=== PATIENT | male | born 1970 | race Two or more races ===

== ENCOUNTER 2018-11-05 16:20 | Inpatient (IN) | payer OTHER, MEDICAID ==
[~2018-11-05] VITALS: Ht 162.6 cm; Wt 69.9 kg
[2018-11-05] MEDS ORDERED: SODIUM CHLORIDE 0.9% 500 ML IV ONE (16:58)
[2018-11-05] MEDS ORDERED: ACETAMINOPHEN 325MG TABLET PO PRN (17:45)
[2018-11-05] MEDS ORDERED: ONDANSETRON HCL 4MG/2ML INJ IV PRN (17:45)
[2018-11-05] MEDS ORDERED: CLONIDINE 0.1MG TABLET PO PRN (17:45)
[2018-11-05] MEDS ORDERED: DOCUSATE SODIUM 100MG CAPSULE PO PRN (17:45)
[2018-11-05] MEDS ORDERED: VANCOMYCIN 1 G PREMIX 200 ML IV ONE (18:00)
[2018-11-05] MEDS ORDERED: HYDROMORPHONE HCL/PF 2MG/ML CPJ IV PRN (18:00)
[2018-11-05] MEDS ORDERED: PIPERACILLIN/TAZ 3.375G PREMIX 50 ML IV ONE (18:00)
[2018-11-05 18:14] LABS: HEMOGLOBIN. 7.4 g/dL (14.0-18.0); MEAN CORPUSCULAR HEMOGLOBIN 38.4 pg (28.0-32.0); MEAN PLATELET VOLUME 8.5 fl (7.4-10.4); PLATELET 65 x1000/uL (130-400); RED BLOOD CELL COUNT 1.93 mill/uL (4.7-6.1); RED CELL DISTRIBUTION WIDTH 25.8 % (11.6-14.6)
[2018-11-05 18:15] LABS: CHLORIDE 95 mEq/L (98-107)
[2018-11-05 18:17] LABS: HEMATOCRIT. 20.9 % (42.0-52.0)
[2018-11-05 18:19] LABS: ETHANOL BLOOD < 10 mg/dL; INR 1.6; PROTHROMBIN TIME 15.8 sec (9.6-11.0)
[2018-11-05 18:57] LABS: NUCLEATED RED BLOOD CELLS 1 /100 WBC; PLATELET ESTIMATE DECREASED
[2018-11-05 19:45] LABS: CLARITY URINE TURBID (CLEAR); COLOR URINE DARK YELLOW (YELLOW); KETONES URINE NEGATIVE (NEGATIVE); LEUKOCYTE ESTERASE URINE 2+ (NEGATIVE); NITRITE URINE POSITIVE (NEGATIVE); OCCULT BLOOD URINE 2+ (NEGATIVE); PROTEIN URINE 1+ (NEGATIVE); SPECIFIC GRAVITY URINE 1.019 (1.005-1.030); UROBILINOGEN URINE 0.2 E.U./dL (0.2-1.0)
[2018-11-05] MEDS ORDERED: LACTULOSE 20G/30ML UDC PO ONE (20:00)
[2018-11-05 20:52] LABS: *BENZODIAZEPINES SCREEN URINE NEGATIVE (NEGATIVE); *COCAINE SCREEN URINE NEGATIVE (NEGATIVE); METHADONE URINE SCREEN NEGATIVE (NEGATIVE)
[2018-11-05 20:53] LABS: *AMPHETAMINES SCREEN URINE NEGATIVE (NEGATIVE); *BARBITURATES SCREEN URINE NEGATIVE (NEGATIVE); CANNABINOID URINE SCREEN NEGATIVE (NEGATIVE); OPIATES URINE SCREEN NEGATIVE (NEGATIVE); PHENCYCLIDINE URINE SCREEN NEGATIVE (NEGATIVE)
[2018-11-05 22:30] VITALS: BP 149/78
[2018-11-05 23:00] VITALS: BP 149/78
[2018-11-06] VITALS (24 sets, daily range): BP systolic 100–136; BP diastolic 52–82
[2018-11-06] MEDS: DEXT 5%/0.45% NACL 1000ML 1,000 ML IV SCH (01:14)
[2018-11-06] MEDS ORDERED: PIPERACILLIN/TAZ 3.375G PREMIX 50 ML IV SCH (02:00)
[2018-11-06] MEDS: PIPERACILLIN/TAZ 2.25G PREMIX 50 ML IV SCH ×2 (05:50→18:31)
[2018-11-06 07:00] LABS: LDL CHOLESTEROL 49 mg/dL (5-100)
[2018-11-06 07:03] LABS: HDL CHOLESTEROL 8 mg/dL (40-59)
[2018-11-06 07:17] LABS: MEAN CORPUSCULAR VOLUME 107.1 fL (80.0-94.0); MEAN PLATELET VOLUME 8.1 fl (7.4-10.4); PLATELET 62 x1000/uL (130-400); RED BLOOD CELL COUNT 1.75 mill/uL (4.7-6.1); RED CELL DISTRIBUTION WIDTH 25.2 % (11.6-14.6)
[2018-11-06 07:48] LABS: HEMATOCRIT. 18.7 % (42.0-52.0); HEMOGLOBIN. 6.6 g/dL (14.0-18.0)
[2018-11-06] MEDS: LACTULOSE 20G/30ML UDC PO SCH ×3 (09:00→21:08)
[2018-11-06 09:25] LABS: INR 1.5; PARTIAL THROMBOPLASTIN TIME 62.7 sec (23.4-31.0); PROTHROMBIN TIME 15.7 sec (9.6-11.0)
[2018-11-06 09:53] LABS: PLATELET ESTIMATE DECREASED
[2018-11-06] MEDS: THIAMINE HCL 100MG TABLET PO SCH (10:00)
[2018-11-06] MEDS ORDERED: LIDOCAINE HCL 1% 20ML VIAL (Pyxis) INJ ONE (10:00)
[2018-11-06] MEDS: FOLIC ACID 1MG TABLET PO SCH (10:00)
[2018-11-06] MEDS: MULTIVITAMINS,THER W-MINERALS TABLET PO SCH (10:00)
[2018-11-06 10:26] LABS: T4 FREE 0.91 ng/dL (0.76-1.46)
[2018-11-06 10:38] LABS: FOLIC ACID (FOLATE) SERUM >20 ng/mL ng/mL (>5.38)
[2018-11-06 11:15] LABS: VITAMIN B12 SERUM > 2000.0 pg/mL (211-911)
[2018-11-06] MEDS ORDERED: DEXTROSE 50% WATER 50ML SYRINGE IV PRN (20:15)
[2018-11-06 20:29] LABS: HEMOGLOBIN 7.4 g/dL (14.0-18.0)
[2018-11-06 20:45] LABS: HEMATOCRIT 20.5 % (42.0-52.0)
[2018-11-06] MEDS: INSULIN LISPRO 100 UNITS/ML SUBCUT SCH (21:00)
[2018-11-06 21:02] LABS: HEPATITIS B SURFACE ANTIGEN NEGATIVE
[2018-11-06] MEDS: BLOOD SUGAR DIAGNOSTIC STRIP TEST SCH (21:06)
[2018-11-06 21:32] LABS: HEPATITIS A AB IGM NEGATIVE (NEGATIVE)
[2018-11-07] VITALS (17 sets, daily range): BP systolic 115–137; BP diastolic 62–79
[2018-11-07] MEDS: PIPERACILLIN/TAZ 2.25G PREMIX 50 ML IV SCH ×2 (05:27→17:57)
[2018-11-07] MEDS: LACTULOSE 20G/30ML UDC PO SCH ×3 (05:27→21:38)
[2018-11-07 06:27] LABS: PHOSPHORUS 5.7 mg/dL (2.5-4.9)
[2018-11-07 06:47] LABS: HEMATOCRIT. 23.8 % (42.0-52.0); HEMOGLOBIN. 8.5 g/dL (14.0-18.0); MEAN CORPUSCULAR HEMOGLOBIN 35.6 pg (28.0-32.0); MEAN PLATELET VOLUME 7.7 fl (7.4-10.4); PLATELET 55 x1000/uL (130-400); RED BLOOD CELL COUNT 2.38 mill/uL (4.7-6.1); RED CELL DISTRIBUTION WIDTH 28.6 % (11.6-14.6)
[2018-11-07] MEDS: BLOOD SUGAR DIAGNOSTIC STRIP TEST SCH ×4 (07:30→21:38)
[2018-11-07] MEDS: INSULIN LISPRO 100 UNITS/ML SUBCUT SCH ×4 (08:00→21:38)
[2018-11-07 09:34] LABS: NUCLEATED RED BLOOD CELLS 1 /100 WBC; PLATELET ESTIMATE DECREASED
[2018-11-07] MEDS: FOLIC ACID 1MG TABLET PO SCH (12:57)
[2018-11-07] MEDS: MULTIVITAMINS,THER W-MINERALS TABLET PO SCH (12:57)
[2018-11-07] MEDS: THIAMINE HCL 100MG TABLET PO SCH (12:58)
[2018-11-07] MEDS: PANTOPRAZOLE SODIUM 40 MG/VIAL IV SCH ×2 (13:51→17:55)
[2018-11-07] MEDS ORDERED: HEPARIN SODIUM 1,000 UNIT/1ML VIAL IV NR (15:30)
[2018-11-08] VITALS (10 sets, daily range): BP systolic 94–132; BP diastolic 45–75
[2018-11-08 00:48] LABS: HEMATOCRIT. 24.5 % (42.0-52.0); HEMOGLOBIN. 8.7 g/dL (14.0-18.0); MEAN CORPUSCULAR HEMOGLOBIN 35.9 pg (28.0-32.0); MEAN CORPUSCULAR VOLUME 100.6 fL (80.0-94.0); PLATELET 57 x1000/uL (130-400); RED BLOOD CELL COUNT 2.44 mill/uL (4.7-6.1); RED CELL DISTRIBUTION WIDTH 28.2 % (11.6-14.6)
[2018-11-08] MEDS ORDERED: VANCOMYCIN 1 G PREMIX 200 ML IV SCH (01:00)
[2018-11-08 01:07] LABS: CREATINE KINASE 21 IU/L (39-308)
[2018-11-08 01:37] LABS: NUCLEATED RED BLOOD CELLS 1 /100 WBC
[2018-11-08 01:38] LABS: PLATELET ESTIMATE DECREASED
[2018-11-08] MEDS: CEFEPIME 1,000 MG in DEXTROSE 5% WATER 50 ML IV SCH (03:35)
[2018-11-08] MEDS: LACTULOSE 20G/30ML UDC PO SCH ×3 (05:59→21:24)
[2018-11-08 06:16] LABS: HEMATOCRIT. 24.9 % (42.0-52.0); HEMOGLOBIN. 8.8 g/dL (14.0-18.0); MEAN CORPUSCULAR HEMOGLOBIN 36.2 pg (28.0-32.0); MEAN CORPUSCULAR VOLUME 101.8 fL (80.0-94.0); MEAN PLATELET VOLUME 8.2 fl (7.4-10.4); PLATELET 62 x1000/uL (130-400); RED BLOOD CELL COUNT 2.44 mill/uL (4.7-6.1); RED CELL DISTRIBUTION WIDTH 28.1 % (11.6-14.6)
[2018-11-08] MEDS: BLOOD SUGAR DIAGNOSTIC STRIP TEST SCH ×4 (07:30→21:24)
[2018-11-08] MEDS: INSULIN LISPRO 100 UNITS/ML SUBCUT SCH ×4 (08:00→21:44)
[2018-11-08 09:36] LABS: PLATELET ESTIMATE DECREASED
[2018-11-08] MEDS: PANTOPRAZOLE 40MG DR TABLET PO SCH (11:08)
[2018-11-08] MEDS: FOLIC ACID 1MG TABLET PO SCH (11:08)
[2018-11-08] MEDS: THIAMINE HCL 100MG TABLET PO SCH (11:08)
[2018-11-08] MEDS: MULTIVITAMINS,THER W-MINERALS TABLET PO SCH (11:08)
[2018-11-08] MEDS: DEXT 5%/0.45% NACL 1000ML 1,000 ML IV SCH (21:46)
[2018-11-09] MEDS: IPRATROPIUM/ALBUTEROL 0.5-3(2.5)MG/3ML NEB INH SCH ×3 (02:04→13:11)
[2018-11-09] MEDS: CEFEPIME 1,000 MG in DEXTROSE 5% WATER 50 ML IV SCH (03:25)
[2018-11-09 04:00] VITALS: BP 96/50
[2018-11-09 05:41] LABS: HEMATOCRIT. 26.1 % (42.0-52.0); HEMOGLOBIN. 9.2 g/dL (14.0-18.0); MEAN CORPUSCULAR HEMOGLOBIN 36.3 pg (28.0-32.0); MEAN CORPUSCULAR VOLUME 103.3 fL (80.0-94.0); MEAN PLATELET VOLUME 8.3 fl (7.4-10.4); PLATELET 78 x1000/uL (130-400); RED BLOOD CELL COUNT 2.53 mill/uL (4.7-6.1); RED CELL DISTRIBUTION WIDTH 27.8 % (11.6-14.6)
[2018-11-09] MEDS: PANTOPRAZOLE 40MG DR TABLET PO SCH (06:25)
[2018-11-09] MEDS: BLOOD SUGAR DIAGNOSTIC STRIP TEST SCH (06:25)
[2018-11-09] MEDS: LACTULOSE 20G/30ML UDC PO SCH (06:25)
[2018-11-09 08:00] VITALS: BP 97/49
[2018-11-09] MEDS: INSULIN LISPRO 100 UNITS/ML SUBCUT SCH (08:15)
[2018-11-09] MEDS: THIAMINE HCL 100MG TABLET PO SCH (08:52)
[2018-11-09] MEDS: MULTIVITAMINS,THER W-MINERALS TABLET PO SCH (08:52)
[2018-11-09] MEDS: FOLIC ACID 1MG TABLET PO SCH (08:52)
[2018-11-09 09:58] LABS: PLATELET ESTIMATE DECREASED
== END 2018-11-09 13:30 | disposition left against medical advice (07) | DRG 720 ==
LOC: ER 16:20 → EDBEDREQ 17:05 → SUPCPDRO 17:26 → 5EST 17:34 → EDBEDREQTM 17:38 → EDBEDREQ 17:38 → ENRESERV 20:11 → 6WST 11-08 18:57
PROVIDERS: ADMIT Internal Medicine Nephrology; ATTEND Internal Medicine Nephrology
PROC: 30233N1 Transfusion of Nonautologous Red Blood Cells into Peripheral Vein, Percutaneous Approach (ICD-10-PCS; 2018-11-06)
PROC: 02HV33Z Insertion of Infusion Device into Superior Vena Cava, Percutaneous Approach (ICD-10-PCS; 2018-11-06)
PROC: B548ZZA Ultrasonography of Superior Vena Cava, Guidance (ICD-10-PCS; 2018-11-06)
PROC: B5181ZA Fluoroscopy of Superior Vena Cava using Low Osmolar Contrast, Guidance (ICD-10-PCS; 2018-11-06)
PROC: 4A00X4Z Measurement of Central Nervous Electrical Activity, External Approach (ICD-10-PCS; principal; 2018-11-07)
PROC: 0W9G3ZZ Drainage of Peritoneal Cavity, Percutaneous Approach (ICD-10-PCS; 2018-11-07)
PROC: 5A1D70Z Performance of Urinary Filtration, Intermittent, Less than 6 Hours Per Day (ICD-10-PCS; 2018-11-07)
PROC: 5A1D70Z Performance of Urinary Filtration, Intermittent, Less than 6 Hours Per Day (ICD-10-PCS; 2018-11-09)
DX: A41.9 Sepsis, unspecified organism (principal); E43 Unspecified severe protein-calorie malnutrition; G92 Toxic encephalopathy; E87.2 Acidosis; D68.9 Coagulation defect, unspecified; D69.6 Thrombocytopenia, unspecified; I12.0 Hypertensive chronic kidney disease with stage 5 chronic kidney disease or end stage renal disease; N18.6 End stage renal disease; N39.0 Urinary tract infection, site not specified; D53.9 Nutritional anemia, unspecified; K70.31 Alcoholic cirrhosis of liver with ascites; K80.20 Calculus of gallbladder without cholecystitis without obstruction; R65.20 Severe sepsis without septic shock; K76.6 Portal hypertension; N20.0 Calculus of kidney; F10.20 Alcohol dependence, uncomplicated; R27.8 Other lack of coordination; Z53.21 Procedure and treatment not carried out due to patient leaving prior to being seen by health care provider; Z68.26 Body mass index [BMI] 26.0-26.9, adult; Z99.2 Dependence on renal dialysis; Z86.19 Personal history of other infectious and parasitic diseases
CPT/HCPCS: 36415; 36569; 36573; 49083; 70551; 71045; 74176; 76705; 80048; 80061; 80202; 80305; 80320; 82140; 82247; 82248; 82550; 82607; 82746; 82962; 82977; 83036; 83605; 83615; 83735; 83880; 84100; 84145; 84439; 84443; 84450; 84460; 84481; 84484; 85014; 85018; 86705; 86709; 86803; 86850; 86900; 86920; 87340; 88108; 88312; 93005; 93306; 93970; 96365; 96366; 97116; 97162; 97166; 97530; 99291; C1725; C1769; C9113; J0692; J1170; J1644; J1815; J2405; J2543; J3370; J3490; J7030; J7040; J7050; J7060; J7620; P9016; G0480